=== PATIENT | female | born 1990 | race Caucasian/White ===

== ENCOUNTER 2016-12-12 17:26 | Emergency (ER) | payer SELFPAY ==
[~2016-12-12] VITALS: Ht 162.6 cm; Wt 81.6 kg
[2016-12-12 18:07] VITALS: BP 116/64
== END 2016-12-12 19:38 | disposition home or self-care (01) ==
LOC: ER 17:41
DX: S97.82XA Crushing injury of left foot, initial encounter (principal); S90.32XA Contusion of left foot, initial encounter; X58.XXXA Exposure to other specified factors, initial encounter; Y93.9 Activity, unspecified; Y92.9 Unspecified place or not applicable; Y99.9 Unspecified external cause status
CPT/HCPCS: 73630; 99284; A4606; Z7610

== ENCOUNTER 2017-01-31 00:25 | Emergency (ER) | payer MEDICAID ==
[~2017-01-31] VITALS: Ht 162.6 cm; Wt 81.6 kg
[2017-01-31 01:18] VITALS: BP 135/81
== END 2017-01-31 01:28 | disposition home or self-care (01) ==
LOC: ER 00:27
DX: K08.89 Other specified disorders of teeth and supporting structures (principal); F41.9 Anxiety disorder, unspecified; F32.9 Major depressive disorder, single episode, unspecified; F50.9 Eating disorder, unspecified
CPT/HCPCS: 99283; A4606; Z7610

== ENCOUNTER 2017-03-04 00:56 | Emergency (ER) | payer MEDICAID ==
[~2017-03-04] VITALS: Ht 162.6 cm; Wt 81.6 kg
[2017-03-04 02:14] VITALS: BP 148/81
== END 2017-03-04 04:46 | disposition home or self-care (01) ==
LOC: ER 00:56
DX: R22.1 Localized swelling, mass and lump, neck (principal); F41.9 Anxiety disorder, unspecified; F32.9 Major depressive disorder, single episode, unspecified; W57.XXXA Bitten or stung by nonvenomous insect and other nonvenomous arthropods, initial encounter; Y93.89 Activity, other specified; Y92.89 Other specified places as the place of occurrence of the external cause; Y99.8 Other external cause status
CPT/HCPCS: 99281; A4606; Z7610; Z7502

== ENCOUNTER 2018-03-01 20:48 | Emergency (ER) | payer OTHER ==
[~2018-03-01] VITALS: Ht 162.6 cm; Wt 97.5 kg
--- NOTE | 2018-03-01 21:05 | NUR ---
TO BED 15 A 27 YO FEMALE PATIENT BIB FRIEND C/O FEVER X 3 DAYS. PATIENT IS AAOX3, NAD NOTED. NO SOB. SKIN WARM AND DRY. COMFORT MEASURES RENDERED.
--- NOTE | 2018-03-01 21:10 | NUR ---
ELECTRIC SWITCH TESTER MARSII AT BEDSIDE TO EVALUATE PATIENT.
[2018-03-01] MEDS ORDERED: IBUPROFEN 600 MG TABLET PO ONE ×2 (21:14→21:30)
[2018-03-01] MEDS ORDERED: ACETAMINOPHEN ES 500 MG TABLET ONE (21:14)
[2018-03-01] MEDS ORDERED: ACETAMINOPHEN ES 500 MG TABLET PO ONE (21:30)
[2018-03-01 22:10] VITALS: BP 125/76
--- NOTE | 2018-03-01 22:10 | NUR ---
Patient discharged to home in stable condition. Written and verbal after care instructions given. Patient verbalizes understanding of instruction. Patient is ambulatory with steady gait, vss. nad noted. no further complaints.
== END 2018-03-01 22:11 | disposition home or self-care (01) ==
LOC: ER 20:48
DX: J11.1 Influenza due to unidentified influenza virus with other respiratory manifestations (principal); R50.9 Fever, unspecified; F17.210 Nicotine dependence, cigarettes, uncomplicated; F10.10 Alcohol abuse, uncomplicated
CPT/HCPCS: 71045-TC; A4606; Z7610